=== PATIENT | female | born 1985 | race African-American/Black ===

== ENCOUNTER 2016-05-27 11:27 | Emergency (ER) | payer OTHER ==
--- NOTE | ~2016-05-27 | EKG ---
PATIENT: NICHOLE LUCAS UNIT #: [id number] Ventricular Rate: 106 BPM Atrial Rate: 106 BPM P-R Interval: 144 ms QRS Duration: 78 ms Q-T Interval: 334 ms QTC Calculation(Bezet): 443 ms P [place]: 51 degrees Calculated R [place]: 11 degrees Calculated T [place]: 41 degrees Diagnosis Line: Sinus tachycardia Diagnosis Line: Otherwise normal ECG Diagnosis Line: When compared with ECG of 02-SEP-2013 19:52, Diagnosis Line: No significant change was found Diagnosis Line: Confirmed by JAISON GUTIERREZ MD ([id number]) on 06/02/2016 Diagnosis Line: 7:59:06 PM INTERPRETING MD: BRENDA FLOWERS
--- NOTE | ~2016-05-27 | CR72 ---
[facility] A Service of [facility] & [facility] RADIOLOGY TEXT RESULTS PATIENT: NICHOLE LUCAS LOCATION: SED : 83 UNIT #: [id number] AGE: [address]: NORBERTO MONTE SEX: F ORDER DR: [id number] [address] [address] [id number] MR#: [id number] Acc #: [id number] NAME: NICHOLE LUCAS : 1985 SEX: F STUDY DATE/TIME: 05/27/2016 11:24 UNIT: SED ROOM: STUDY DESCRIPTION: CR Chest Single View Portable Attending Physician: Norberto Monte Referring Physician: Norberto Monte Ordering Physician: Staff Doctor Not On Primary Care Physician: No Primary Care Physician MEDICAL IMAGING REPORT This report is preliminary unless electronic signature is present. EXAM AP radiograph of the chest 05/27/2016 HISTORY Chest pain. FINDINGS AP radiograph of the chest is presented. Chest tightness started this morning, left upper side. Comparison 09/02/2013. Lungs are moderately well inflated with no evidence of acute pulmonary disease, pleural effusion or pneumothorax. No suspicious nodule. Cardiomediastinal contours normal. Visualized bony structures unremarkable. Dictated by... Leandro Wasserman M.D. THIS IS AN ELECTRONICALLY VERIFIED REPORT Leandro Wasserman M.D. at 05/28/2016 4:50 PM AMBER/martir TD: 05/27/2016 14:18 JOB #: [id number] MEDICAL IMAGING REPORT Page 1 of 1
[~2016-05-27 11:27] MED LIST: ACETAMINOPHEN PR; ATARAX PO; CALCITRIOL0.5 MCG PO; HCTZ PO; IBUPROFEN800 MG PO; LORTAB 5/500 TA1 TA1 PO; METFORMIN PO; MIRALAX17 G1 PO; NEURONTIN PO; ORTHO EVRA1 PATCH.WK TOP; PROZAC PO; ROCALTROL PO; SYNTHROID PO; TRAZODONE PO; VITAMIN D50000 UNIT PO; ZYRTEC10 M1 PO; [UNRECOGNIZED DRUG - OTHER] PO
[2016-05-27 11:47] LABS: BASOPHIL% 0.7 % (0-2.5); EOSINOPHIL# 0.1 X10e3 (0-0.7); EOSINOPHIL% 0.9 % (0.0-7.0); HEMATOCRIT 37.2 % (35.0-45.0); HEMOGLOBIN 12.6 gm/dL (12.0-16.0); LYMPHOCYTE# 0.9 X10e3 (1.0-3.5); LYMPHOCYTE% 15.3 % (17.0-45.0); MEAN CELL VOLUME 82.5 FL (83-96); MEAN CORPUSCULAR HEMOGLOBIN 28.1 PG (28-34); MEAN PLATELET VOLUME 8.3 FL (6.5-11.5); MONOCYTE# 0.3 X10e3 (0-1.0); MONOCYTE% 5.7 % (3.0-12.0); NEUTROPHIL# 4.6 X10e3 (1.5-7.1); NEUTROPHIL% 77.4 % (40-75); PLATELET COUNT 311 X10e3 (140-420); RED CELL DISTRIBUTION WIDTH 13.5 % (11.0-15.5)
[2016-05-27 11:58] LABS: DIFF IND NO
[2016-05-27 12:00] LABS: INR 1.2; PROTHROMBIN TIME (PATIENT) 13.9 SECONDS (9.5-12.4)
[2016-05-27 12:03] LABS: POC - CKMB <1.0 ng/mL (0.0-7.9); POC - MYOGLOBIN 63.6 ng/mL (0.0-169.0); POC - TROPONIN <0.05 ng/mL (<=0.05)
[2016-05-27 12:07] LABS: PARTIAL THROMBOPLASTIN TIME 27.1 SECONDS (25.6-38.1)
[2016-05-27 12:11] LABS: ALBUMIN SERUM 4.2 g/dL (3.5-5.0); BILIRUBIN, DIRECT 0.1 mg/dL (0.0-0.2); BILIRUBIN,INDIRECT 0.6 mg/dL (0.0-0.9); BILIRUBIN,TOTAL 0.7 mg/dL (0.2-2.0); CALCIUM SERUM 9.3 mg/dL (8.4-10.2); GLOM FILT RATE Estimated 86.4 mL/min (>60); POTASSIUM 3.5 mmol/L (3.5-5.1); PROTEIN TOTAL SERUM 8.6 g/dL (6.0-8.3)
== END 2016-05-27 13:15 | disposition home or self-care (01) ==
LOC: SED 11:27
PROVIDERS: Nurse Practitioner
DX: R07.89 Other chest pain (principal); F41.9 Anxiety disorder, unspecified; I10 Essential (primary) hypertension; F32.9 Major depressive disorder, single episode, unspecified; Z88.1 Allergy status to other antibiotic agents
CPT/HCPCS: 36415; 71010; 80048; 80076; 82553; 83874; 84484; 85025; 85610; 85730; 93005; 99284